=== PATIENT | male | born 1985 | race American Indian/Alaskan Native ===

== ENCOUNTER 2021-12-18 15:34 | Emergency (ER) | payer MEDICARE ==
--- NOTE | 2021-12-18 20:13 | Emergency Department Report ---
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 Patient does not have a primary physician. He previously received care on [facility]. He has mild drainage. He does not receive wound care. -: Gradual, month(s) (Several months) Extremity Location: Left: Ankle, Right: Thigh, Ankle Context: other (History of paraplegia) Associated Symptoms: other (Drainage) - Related Data Previous Rx's Medication Instructions Recorded Last Taken Type Clindamycin [Clindamycin CAP] 300 mg PO TID 10 Days #30 cap 12/18/21 Unknown Rx Allergies Allergy/AdvReac Type Severity Reaction Status Date / Time Sulfa (Sulfonamide AdvReac Unknown Verified 03/21/16 01:58 Antibiotics) ED Review of Systems ROS: Stated complaint: PRESSURE SORES /INFECTION Other details as noted in HPI Comment: All other systems reviewed and negative Constitutional: denies: fever Respiratory: denies: cough, shortness of breath Cardiovascular: denies: chest pain Gastrointestinal: denies: abdominal pain, nausea, vomiting Skin: rash, lesions ED Past Medical Hx - Past Medical History Previous Medical History?: Yes Hx Congestive Heart Failure: No Hx Diabetes: No Hx Asthma: No Hx COPD: No Additional medical history: Paraplegia - Surgical History Past Surgical History?: Yes Hx Appendectomy: Yes Additional Surgical History: surgery on left lung, t12 incomplete spinal injury - Social History Smoking Status: Former Smoker Substance Use Type: None - Medications Home Medications: Home Medications Medication Instructions Recorded Confirmed Last Taken Type Clindamycin [Clindamycin CAP] 300 mg PO TID 10 Days #30 cap 12/18/21 Unknown Rx ED Physical Exam - General Limitations: No Limitations General appearance: alert, in no apparent distress - Head Head exam: Present: atraumatic, normocephalic - Eye Eye exam: Present: normal appearance - ENT ENT exam: Present: mucous membranes moist - Neck Neck exam: Present: normal inspection, full ROM - Respiratory Respiratory exam: Present: normal lung sounds bilaterally. Absent: respiratory distress, wheezes, rales, rhonchi - Cardiovascular Cardiovascular Exam: Present: regular rate, normal rhythm. Absent: systolic murmur, diastolic murmur, rubs, gallop - GI/Abdominal GI/Abdominal exam: Present: soft, normal bowel sounds. Absent: distended, tenderness, guarding, rebound - Rectal Rectal exam: Present: deferred - Extremities Exam Extremities exam: Present: other (Bilateral leg edema with hyperpigmented thickened skin:) - Back Exam Back exam: Present: normal inspection - Neurological Exam Neurological exam: Present: alert, oriented X3 - Psychiatric Psychiatric exam: Present: normal affect, normal mood - Skin Skin exam: Present: warm, dry, rash, other (Left ankle medial: 6 cm x 6 cm circular decubitus ulcer with purulent drainage, pressure compression bandage in both lower extremities: Stage II decubitus ulcer of the right posterior thigh) ED Course Vital Signs 12/18/21 15:40 Temperature 98.7 F Pulse Rate 89 Respiratory 16 Rate Blood Pressure 147/89 [Left] ED Medical Decision Making - Medical Decision Making Decubitus ulcers of the right posterior thigh and both ankles: Infection present at the left ankle. Patient prescribed clindamycin. Patient referred to general surgery and fulfillment specialist. Critical care attestation.: If time is entered above; I have spent that time in minutes in the direct care of this critically ill patient, excluding procedure time. ED Disposition Clinical Impression: Decubitus ulcer of left ankle, Decubitus ulcer of right thigh, Decubitus ulcer of right ankle, Paraplegia Disposition: 01 HOME / SELF CARE / HOMELESS Is pt being admited?: No Does the pt Need Aspirin: No Condition: Stable Instructions: Preventing Pressure Injuries Prescriptions: Clindamycin [Clindamycin CAP] 300 mg PO TID 10 Days #30 cap Referrals: GHAZAL ANTONY DO [Staff Physician] - 3-5 Days
[2021-12-18 22:43] VITALS: BP 132/78
== END 2021-12-18 22:37 | disposition home or self-care (01) ==
LOC: ED 15:34
DX: L89.529 Pressure ulcer of left ankle, unspecified stage (principal); L89.519 Pressure ulcer of right ankle, unspecified stage; G82.20 Paraplegia, unspecified; L89.892 Pressure ulcer of other site, stage 2; Z88.2 Allergy status to sulfonamides
CPT/HCPCS: 99282